=== PATIENT | male | born 1965 | race Asian ===

== ENCOUNTER 2020-10-05 19:01 | Emergency (ER) | payer OTHER ==
[~2020-10-05] VITALS: Ht 185.4 cm; Wt 68.0 kg
[2020-10-05 20:07] LABS: PLATELET COUNT 273 K/uL (142-355)
[2020-10-05 20:35] LABS: POTASSIUM 5.4 mmol/L (3.6-5.2)
[2020-10-05 21:24] VITALS: BP 124/76; TEMP 98.7
== END 2020-10-05 21:24 | disposition home or self-care (01) ==
LOC: ED 19:01
PROVIDERS: Emergency Medicine Emergency Medical Services
DX: F43.20 Adjustment disorder, unspecified (principal); Z11.52 Encounter for screening for COVID-19
CPT/HCPCS: 36415; 80053; 80320; 80329; 85027; 87635; 93005; 99283; U0003

== ENCOUNTER 2021-05-14 10:31 | Outpatient (CLI) | payer OTHER | END 2021-05-14 20:02 | disposition home or self-care (01) | LOC: RAD 10:31 | PROVIDERS: ATTEND Internal Medicine | DX: Z02.71 Encounter for disability determination (principal); S82.90XA Unspecified fracture of unspecified lower leg, initial encounter for closed fracture; M25.569 Pain in unspecified knee; B20 Human immunodeficiency virus [HIV] disease; J45.909 Unspecified asthma, uncomplicated; K21.9 Gastro-esophageal reflux disease without esophagitis; T78.40XA Allergy, unspecified, initial encounter; M54.9 Dorsalgia, unspecified; Y92.9 Unspecified place or not applicable ==